=== PATIENT | female | born 1985 | race Caucasian/White ===

== ENCOUNTER 2018-02-01 09:17 | Emergency (ER) | payer OTHER, SELFPAY ==
[2018-02-01 09:31] VITALS: BP 128/72; PULSE 77; RESP 14; TEMP 36.9; O2SAT 96
--- NOTE | 2018-02-01 11:14 | ED.URI ---
HPI - URI/Sore Throat General Chief Complaint: Upper Respiratory Symptoms Stated Complaint: STREP, EAR INFECTION Time Seen by Provider: 02/01/18 11:02 Source: patient Mode of arrival: ambulatory Limitations: no limitations History of Present Illness HPI Narrative: Patient is a 32-year-old female who presents with sore throat. She began having a sore throat yesterday she has had some body aches no cough. They have been camping she feels like it has gotten worse. She is able to swallow without any difficulty. MD Complaint: sore throat Related Data Home Medications Medication Instructions Recorded Confirmed multivitamin 1 tab PO DAILY 02/01/18 02/01/18 Previous Rx's Medication Instructions Recorded clindamycin HCl 300 mg PO QID #28 cap 02/01/18 Allergies Allergy/AdvReac Type Severity Reaction Status Date / Time amoxicillin Allergy Unknown Verified 02/01/18 09:30 Penicillins Allergy Unknown Verified 02/01/18 09:30 Review of Systems Review of Systems All systems reviewed & are unremarkable except as noted in HPI and below Constitutional Reports body ache(s), Reports fatigue and Reports fever(s) ENT Ears, Nose, Mouth, and Throat: Reports system reviewed and no additional complaints, except as docu Cardiovascular Denies chest pain, Denies irregular heart rhythm, Denies lightheadedness, Denies palpitations, Denies dyspnea, Denies dyspnea on exertion and Denies orthopnea Respiratory Denies cough, Denies dyspnea, Denies dyspnea on exertion and Denies wheezing Musculoskeletal Denies back pain, Denies muscle weakness, Denies numbness and Denies tingling Integumentary/Breasts Denies pruritus, Denies erythema, Denies rash and Denies wounds Neurologic Denies numbness and Denies tingling Endocrine Reports fatigue and Denies palpitations Allergic/Immunologic Denies wheezing PFSH Medical History Patient denies medical problems (Acute) Social History Smoking Status: Current every day smoker Exam Initial Vital Signs Initial Vital Signs: Vital Signs Temperature 98.5 F 02/01/18 09:31 Pulse Rate 77 02/01/18 09:31 Respiratory Rate 14 02/01/18 09:31 Blood Pressure 128/72 H 02/01/18 09:31 Pulse Oximetry 96 02/01/18 09:31 Const General: cooperative and well developed Nutritional Appearance: well nourished Orientation: alert, awake, oriented x3 and not confused HENMT Throat: abnormal tonsil on the right erythema and exudates; no hypertrophy and uvula not displaced Chest Chest: normal inspection of the chest Resp Effort & Inspection: normal respiratory effort, able to speak in complete sentences, no respiratory distress and no use of accessory muscles Auscultation: clear to auscultation bilaterally, no rales, no rhonchi and no wheezes Cardio Rate: regular rate Rhythm: regular rhythm Heart Sounds: no click, no gallops, no murmurs and no rubs Pulses: normal peripheral pulses Skin General: no rashes or lesions noted, No jaundice and No petechiae Neuro General: alert, awake and oriented x3 Course Vital Signs - 8 hr 02/01/18 09:31 Temperature 98.5 F Pulse Rate 77 Respiratory Rate 14 Blood Pressure 128/72 H Pulse Oximetry 96 MDM - URI/Sore Throat Lab Data Attestation: I reviewed the patient's lab results. strep positive Discharge Plan Departure Patient Disposition: Home, Self-Care Clinical Impression: Strep pharyngitis Discharge Date/Time: 02/01/18 11:27 Interventions: ED Discharge Assessment Last Done: 02/01/18 11:27 Instructions: DI for Strep Throat Activity Restrictions/Additional Instructions: *You have been diagnosed with strep throat *What to do: Fever control, hydrate *Take medications as directed -clindamycin 4 times a day as directed until gone *Follow up with your primary care provider in 2-3 days *Return to ER if you should have or any new, worsening or concerning symptoms Prescriptions: New clindamycin HCl 300 mg capsule 300 mg PO QID Qty: 28 RF: 0 No Action multivitamin Tablet 1 tab PO DAILY RF: 0 Referrals: [facility] [Outside] Stand Alone Forms: Work/School Restrictions
== END 2018-02-01 11:27 | disposition home or self-care (01) ==
PROVIDERS: Emergency Provider Emergency Medicine
DX: J02.0 Streptococcal pharyngitis (principal)
CPT/HCPCS: 87880; 99283

== ENCOUNTER → 2019-02-28 17:03 | Outpatient (CLI) | payer OTHER, SELFPAY ==
--- NOTE | 2019-02-28 | DI.MRI.S_ITS ---
PROCEDURE: MR BRAIN (IAC) WWO CON INDICATIONS: TINNITUS LEFT EAR TECHNIQUE: Noncontrast sagittal T1 spin echo, axial FLAIR, axial gradient echo, axial diffusion and ADC through the brain. Axial thin-slice 3D CISS, coronal TruFISP, axial T1 spin echo with fat saturation through the internal auditory canals. After the administration of contrast, thin slice axial and coronal T1 spin echo with fat saturation through the internal auditory canals, and axial T1 spin echo with fat saturation through the brain. COMPARISON: None. FINDINGS: Image quality: Excellent. Cerebellopontine angles: No cerebellopontine angle masses. Inner ear structures appear normally formed. No suspicious enhancement in the internal auditory canal or along the course of the 7th cranial nerve. CSF spaces: Ventricles are normal in size and shape. No extra-axial fluid collections. Basal cisterns are patent. Brain: No intracranial bleeds or mass effects. Benavidez-white matter interface is intact. No abnormal intracranial enhancement. Diffusion weighted images demonstrate no acute ischemic insults. Brainstem appears normal. Normal intravascular flow voids are present. Skull and face: Calvarial marrow signal is normal. Orbits appear normal. Sinuses: Sinuses and mastoids are clear. IMPRESSION: Negative examination without evidence of vestibular schwannoma. Dictated by: Digna Phoenix MD, PhD on 03/01/2019 at 16:27 Approved by: Digna Phoenix MD, PhD on 03/01/2019 at 16:29
== END ==
PROVIDERS: Visit Provider Otolaryngology Facial Plastic Surgery
DX: H93.12 Tinnitus, left ear (principal)
CPT/HCPCS: 70553; A9579

== ENCOUNTER 2020-04-27 13:31 | Emergency (ER) | payer OTHER, SELFPAY ==
[2020-04-27] VITALS (7 sets, daily range): BP systolic 117–131; BP diastolic 69–73; PULSE 66–74; RESP 13–23; TEMP 36.5; O2SAT 97–99; BMI 30.7
--- NOTE | 2020-04-27 13:47 | DI.RAD.S_ITS ---
PROCEDURE: XR CHEST 1V INDICATIONS: chest pains TECHNIQUE: One view of the chest was acquired. COMPARISON: None. FINDINGS: Surgical changes and devices: None. Lungs and pleura: Lungs are clear. No pleural effusions or pneumothorax. Mediastinum: Mediastinal contours appear normal. Heart size is normal. Bones and chest wall: No suspicious bony lesions. Overlying soft tissues appear unremarkable. IMPRESSION: Normal for age, source of current chest pain symptoms is not seen. Dictated by: Abe Altamirano M.D. on 04/27/2020 at 14:39 Approved by: Abe Altamirano M.D. on 04/27/2020 at 14:45
[2020-04-27 14:22] LABS: Add Manual Diff / Slide Review NO; Basophils Absolute Auto 0 /uL (0-100); Basophils Percent Auto 0.7 % (0-2); Eosinophils Absolute Auto 100 /uL (0-450); Eosinophils Percent Auto 1.5 % (2-4); Hematocrit 37.5 % (36-46); Hemoglobin 12.8 g/dL (12.0-16.0); Lymphocytes Absolute Auto 1700 /uL (1100-4500); Mean Corpuscular Hemoglobin 30.6 PG (26-34); Mean Corpuscular Volume 89.9 fL (80-100); Monocytes Absolute Auto 400 /uL (0-900); Monocytes Percent Auto 7.3 % (3-14); Neutrophils Absolute Auto 3000 /uL (1500-7000); Neutrophils Percent Auto 57.5 % (50-75); Platelet Count 273 X10^3/uL (150-400); Red Blood Cell Count 4.17 X10^6/uL (4.0-5.2); Red Cell Distribution Width 12.6 % (11.6-14.8); White Blood Cell Count 5.2 X10^3/uL (4.5-11.0)
--- NOTE | 2020-04-27 14:24 | ED.CHESTPAIN ---
HPI - Chest Pain General Chief Complaint: Chest Pain Stated Complaint: CHEST PAINS past week Time Seen by Provider: 04/27/20 14:10 Source: patient Mode of arrival: Ambulatory Limitations: no limitations History of Present Illness HPI narrative: Patient is a 34-year-old female who presents with increasing shortness of breath and chest pain. She says this been ongoing for 1 week. She feels like she is not getting enough oxygen. She recently did just fly to [place] and [place]. She feels like her chest is tight. This has happened to her in the past she received an albuterol inhaler she has been using it but it does not seem to help. She admits to vaping nicotine. She denies any fever chills or fatigue. MD complaint: chest pain Onset (ago): week(s) (1) Related Data Home Medications Medication Instructions Recorded Confirmed multivitamin 1 tab PO DAILY 02/01/18 02/01/18 acetaminophen 500 mg tablet 2,000 mg PO DAILY PRN tab 04/28/19 04/28/19 pclgqdu-lqjlobhsrwwra-[id number] 250 1 tab PO BID PRN tab 04/28/19 04/28/19 mg-250 mg-65 mg tablet aspirin-caffeine 845 mg-65 mg oral 2 each PO DAILY PRN each 04/28/19 04/28/19 powder packet fluoxetine 20 mg capsule 40 mg PO DAILY cap 04/28/19 04/28/19 omeprazole 20 mg capsule,delayed 40 mg PO DAILY 04/28/19 04/28/19 release viviscal 900 mg PO DAILY 04/28/19 04/28/19 bupropion HCl 100 mg tablet,12 hr 100 mg PO DAILY 07/18/19 07/18/19 sustained-release Previous Rx's Medication Instructions Recorded clindamycin HCl 300 mg PO QID #28 cap 02/01/18 rizatriptan 10 mg tablet See Rx Instructions PO .COMPLEX 07/18/19 #10 tab nadolol 20 mg tablet 20 mg PO DAILY #30 tab 07/19/19 nadolol 20 mg tablet 40 mg PO DAILY #60 tab 10/06/19 Allergies Allergy/AdvReac Type Severity Reaction Status Date / Time amoxicillin Allergy Unknown Verified 10/06/19 10:08 Penicillins Allergy Unknown Verified 10/06/19 10:08 Review of Systems Review of Systems ROS Unobtainable: All systems reviewed & are unremarkable except as noted in HPI and below Constitutional Constitutional: Denies chills, Denies fever(s), Denies lethargy and Denies weakness Eyes Eyes: Denies change in vision, Denies eye discharge, Denies irritation and Denies loss of vision ENT Ears, Nose, Mouth, and Throat: Denies vertigo and Denies dizziness Cardiovascular Cardiovascular: Reports as per HPI and Reports dyspnea Respiratory Respiratory: Reports as per HPI, Denies chest congestion, Denies cough, Denies hemoptysis, Denies pain with cough and Reports dyspnea Gastrointestinal Gastrointestinal: Denies abdominal pain, Denies change in bowel habits, Denies diarrhea, Denies nausea and Denies vomiting Musculoskeletal Musculoskeletal: Denies back pain and Denies myalgias Integumentary/Breasts Skin/Breast: Denies pruritus, Denies erythema, Denies rash and Denies wounds Neurologic Neurologic: Denies vertigo, Denies dizziness, Denies loss of vision and Denies weakness Patient History Medical History Patient denies medical problems (Acute) Social History Smoking Status: Current every day smoker Smoking Status: Current every day smoker alcohol intake frequency: 0-2 drinks per day Substance Use Type: does not use Exam Initial Vital Signs Initial Vital Signs: Vital Signs Temperature 97.7 F 04/27/20 13:38 Pulse Rate 74 04/27/20 13:38 Respiratory Rate 18 04/27/20 13:38 Blood Pressure 131/72 04/27/20 13:38 Pulse Oximetry 98 04/27/20 13:38 GENERAL: Well-appearing, well-nourished and in no acute distress. HEENT: Head atraumatic,EOMI, pupils reactive, face symmetric, moist mucous membranes CARDIOVASCULAR: Regular rate and rhythm without murmurs, rubs or gallops. RESPIRATORY: Breath sounds equal bilaterally, no wheezes rales or rhonchi. ABDOMEN: Soft, nontender. Normoactive bowel sounds all 4 quadrants. No guarding or rebound. EXTREMITIES: Normal range of motion, no clubbing or edema. Neurovascularly intact NEUROLOGICAL: Alert and oriented x4.Normal gait and speech. SKIN: Warm, dry, no laceration, no petechiae, no rashes or lesions. Scores HEART Score Heart Score history: Slightly Suspicious Heart Score EKG: Normal Heart Score Age: < 45 years old Heart Score risk factors: No known risk factors Heart Score troponin: < or = to normal limit Heart Score Total: 0 PERC Score Age greater than or equal to 50 years: No Heart rate greater than or equal to 100 bpm: No Room Air O2 Sat less than 95%: No Unilateral leg swelling: No Recent trauma or surgery: No Hemoptysis: No Prior PE or DVT: No Hormone Use: No Total PERC Score: 0 Wells' Criteria for PE Clinical signs and symptoms of DVT: No PE is #1 Dx or equally likely: No Heart rate > 100: No Immobilization at least 3 days or surg in previous 4 weeks: No History of PE or DVT: No Hemoptysis: No Malignancy w/Treatment within 6 months or palliative: No Wells' PE Score total: 0 Course Orders Ordered: ED Orders 04/27/20 13:20 D Dimer Stat 04/27/20 13:47 XR chest 1V Stat EKG-12 Lead Stat 04/27/20 14:00 Complete Blood Count AUTO DIFF Stat Comprehensive Metabolic Panel Stat Lipase Stat Troponin & CK Cardiac Panel Stat Discontinued Medications Albuterol (Ventolin Hfa Prepack) 1 box MISC SEEINSTR ONE Stop: 04/27/20 14:23 Last Admin: 04/27/20 14:29 Dose: 1 box Documented by: DARYN Aspirin (Aspirin Chew) 324 mg PO NOW ONE Stop: 04/27/20 13:48 Last Admin: 04/27/20 14:29 Dose: 324 mg Documented by: DARYN Sodium Chloride (Normal Saline 0.9%) 1,000 mls @ 150 mls/hr IV CONT JORI Last Admin: 04/27/20 14:30 Dose: 150 mls/hr Documented by: DARYN Vital Signs Vital signs: Vital Signs - 8 hr 04/27/20 13:38 04/27/20 13:48 04/27/20 14:00 Temperature 97.7 F Pulse Rate 74 71 72 Respiratory Rate 18 13 23 Blood Pressure 131/72 121/73 Pulse Oximetry 98 97 98 04/27/20 14:30 04/27/20 15:00 04/27/20 15:26 Temperature Pulse Rate 69 66 70 Respiratory Rate 20 23 16 Blood Pressure 120/69 Pulse Oximetry 98 99 98 04/27/20 15:30 Temperature Pulse Rate 66 Respiratory Rate 17 Blood Pressure 117/70 Pulse Oximetry 98 MDM - Chest Pain Lab Data Attestation: I reviewed the patient's lab results. Result diagrams: 04/27/20 14:00 04/27/20 14:00 Labs: Lab Results 04/27/20 04/27/20 04/27/20 Range/Units 13:20 14:00 14:00 WBC 5.2 (4.5-11.0) X10^3/uL RBC 4.17 (4.0-5.2) X10^6/uL Hgb 12.8 (12.0-16.0) g/dL Hct 37.5 (36-46) % MCV 89.9 (80-100) fL MCH 30.6 (26-34) PG MCHC 34.0 (30-36) % RDW 12.6 (11.6-14.8) % Plt Count 273 (150-400) X10^3/uL Neut % (Auto) 57.5 (50-75) % Lymph % (Auto) 33.0 (25-40) % [place] % (Auto) 7.3 (3-14) % Eos % (Auto) 1.5 L (2-4) % Baso % (Auto) 0.7 (0-2) % Neut # (Auto) 3000 (7578-3064) /uL Lymph # (Auto) 1700 (4211-2319) /uL [place] # (Auto) 400 (0-900) /uL Eos # (Auto) 100 (0-450) /uL Baso # (Auto) 0 (0-100) /uL D-Dimer < 200 (<230) ng/mL Sodium 135 L (137-145) mmol/L Potassium 4.3 (3.4-5.1) mmol/L Chloride 104 (98-107) mmol/L Carbon Dioxide 25 (22-32) mmol/L BUN 11 (7-17) mg/dL Creatinine 0.83 (0.52-1.04) mg/dL Estimated GFR > 60.0 (>60) mL/min BUN/Creatinine Ratio 13.3 (6-22) Glucose 103 H (70-100) mg/dL Calcium 8.7 (8.4-10.2) mg/dL Total Bilirubin 0.4 (0.2-1.3) mg/dL AST 36 (14-36) IU/L ALT 20 (<35) IU/L Alkaline Phosphatase 68 (38-126) U/L Total Creatine Kinase 350 H (30-135) U/L CK-MB (CK-2) 0.86 (<2.37) ng/mL CK-MB (CK-2) Rel Index 0.2 L (1.5-5.0) % Troponin I < 0.012 (0.01-0.034) ng/mL Total Protein 7.2 (6.3-8.2) g/dL Albumin 4.4 (3.5-5.0) g/dL Globulin 2.8 (1.7-4.1) g/dL Albumin/Globulin Ratio 1.6 (1.0-2.8) Lipase 167 (23-300) U/L Imaging Data Chest x-ray: Radiologist's Impression: PROCEDURE: XR CHEST 1V INDICATIONS: chest pains TECHNIQUE: One view of the chest was acquired. COMPARISON: None. FINDINGS: Surgical changes and devices: None. Lungs and pleura: Lungs are clear. No pleural effusions or pneumothorax. Mediastinum: Mediastinal contours appear normal. Heart size is normal. Bones and chest wall: No suspicious bony lesions. Overlying soft tissues appear unremarkable. IMPRESSION: Normal for age, source of current chest pain symptoms is not seen. Dictated by: Abe Altamirano M.D. on 04/27/2020 at 14:39 Approved by: Abe Altamirano M.D. on 04/27/2020 at 14:45 ECG Data Attestation: I personally reviewed and interpreted this ECG as follows: Prior ECG tracings: not available for review Interpretation: Rhythm rate 65 p.r. interval 170 QRS [address] changes no priors to compare MDM Narrative Medical decision making narrative: Patient has been having ongoing chest discomfort for about 1 week. EKG chest x-ray troponin are negative. She recently had trouble flying on an airplane perc score is low and D-dimer is negative at this time I do not believe she requires any further imaging. She is not hypoxic she denies any fever or infectious symptoms. She also denies any fatigue. At this time I recommend she follow-up as an outpatient. Discharge Plan Departure Patient Disposition: Home Clinical Impression: Atypical chest pain Discharge Date/Time: 04/27/20 16:01 Instructions: DI for Atypical Chest Pain Activity Restrictions/Additional Instructions: *You have been diagnosed with atypical chest pain *What to do: At this time I recommend he follow up with her primary care provider he may require further cardiac testing *Continue to take medications as directed Albuterol 1-2 hospice with spacer if needed for shortness of breaths *Follow up with your primary care provider in 2-3 days *Return to ER if you should have increasing shortness of breath chest pain fever cough or any new, worsening or concerning symptoms Prescriptions: No Action nadolol 20 mg tablet 20 mg PO DAILY Qty: 30 RF: 3 multivitamin Tablet 1 tab PO DAILY RF: 0 clindamycin HCl 300 mg capsule 300 mg PO QID Qty: 28 RF: 0 bupropion HCl [Wellbutrin SR] 100 mg tablet sustained-release 12 hr 100 mg PO DAILY RF: 0 rizatriptan 10 mg tablet See Rx Instructions PO .COMPLEX Qty: 10 RF: 3 nadolol 20 mg tablet 40 mg PO DAILY Qty: 60 RF: 2 BC Pain Relief 845-65 mg powder in packet 2 each PO DAILY PRNRF: 0 fluoxetine 20 mg capsule 40 mg PO DAILY RF: 0 omeprazole 20 mg capsule,delayed release(DR/EC) 40 mg PO DAILY RF: 0 viviscal 900 mg PO DAILY RF: 0 acetaminophen [Tylenol Extra Strength] 500 mg tablet 2,000 mg PO DAILY PRNRF: 0 Excedrin Migraine 250-250-65 mg tablet 1 tab PO BID PRNRF: 0 Referrals: [facility] [Outside]
[2020-04-27] MEDS: ALBUTEROL HFA PREPACK 1 BOX MISC (14:29)
[2020-04-27] MEDS: ASPIRIN 81 MG CHEW TAB 324 MG PO (14:29)
[2020-04-27] MEDS: SODIUM CHLORIDE 0.9% 1,000 ML 150 ML IV (14:30)
[2020-04-27 14:37] LABS: D Dimer < 200 ng/mL (<230)
[2020-04-27 15:13] LABS: Alanine Aminotransferase 20 IU/L (<35); Albumin 4.4 g/dL (3.5-5.0); Albumin Globulin Ratio 1.6 (1.0-2.8); Alkaline Phosphatase 68 U/L (38-126); Aspartate Aminotransferase 36 IU/L (14-36); BUN Creatinine Ratio 13.3 (6-22); Bilirubin Total 0.4 mg/dL (0.2-1.3); Blood Urea Nitrogen 11 mg/dL (7-17); Calcium 8.7 mg/dL (8.4-10.2); Carbon Dioxide 25 mmol/L (22-32); Chloride 104 mmol/L (98-107); Creatine Kinase 350 U/L (30-135); Estimated Glomerular Filt Rate > 60.0 mL/min (>60); Globulin 2.8 g/dL (1.7-4.1); Glucose 103 mg/dL (70-100); HEMOLYSIS < 15 (0-50); Lipase 167 U/L (23-300); Potassium 4.3 mmol/L (3.4-5.1); Sodium 135 mmol/L (137-145); Total Protein 7.2 g/dL (6.3-8.2)
[2020-04-27 15:24] LABS: Troponin I < 0.012 ng/mL (0.01-0.034)
[2020-04-27 15:28] LABS: CKMB % Relative Index 0.2 % (1.5-5.0); Creatine Kinase MB 0.86 ng/mL (<2.37)
== END 2020-04-27 16:01 | disposition home or self-care (01) ==
PROVIDERS: Emergency Provider Emergency Medicine
DX: R07.89 Other chest pain (principal); R06.02 Shortness of breath
CPT/HCPCS: 71045; 80053; 82550; 82553; 83690; 84484; 85025; 85379; 93005; 93010; 99284